=== PATIENT | female | born 1995 | race Caucasian/White ===

== ENCOUNTER 2018-02-22 22:37 | Emergency (ER) | payer MEDICAID, SELFPAY ==
[2018-02-22 22:38] VITALS: BP 154/86; PULSE 113; RESP 20; TEMP 36.7; O2SAT 98; BMI 23.0
--- NOTE | 2018-02-22 23:00 | ED.DCSUM_ITS ---
- ER Visit Summary Date of Service: 02/22/18 Chief Complaint: Myalgias, neck pain, rash History of Present Illness: The patient is a 22 F who is otherwise healthy presents with approximately 24 hours of infectious type symptoms. Patient states yesterday, she developed a migraine. She states she had a mild frontal headache and took some Tylenol and it really did not improve. She states today, she just had some generalized fatigue. She had some intermittent neck tenderness, worse when she would move her neck. Is not had fever today. She is also noticed a rash around her underwear line. She had no nausea or vomiting. She said no cough. She denies any diarrhea. She denies any recent travel or exposure. Physical Examination: Vital signs reviewed General: Well-nourished, well-developed Head: Normocephalic, atraumatic Eyes: Pupils equal and reactive, extraocular muscles intact Neck, supple, no lymphadenopathy Heart: Regular rate and rhythm Respiratory: No distress, clear bilaterally Abdomen: Soft, nontender, nondistended, no peritoneal signs Back: Nontender Extremities: Nontender, no edema, no cords Skin: Normal color scar lentiform rash across the lower abdomen at the waistline Neuro: Alert and oriented, no focal or lateralizing deficits Test Results: [] Emergency Department Course and Treatment: The patient symptoms do seem most consistent with a viral illness. She is had mild frontal headache, generalized fatigue, and then developed a rash on her lower abdomen. It is not petechial. There is no purpura. She is afebrile here. She is definitely not meningitic or encephalopathic. IV was established. Screening labs were obtained. She does have a monocytic predominance on her CBC, but labs are otherwise unremarkable. Her chest x-ray was unremarkable. Patient was given fluids and Toradol. She is resting comfortably. Her urine shows no evidence of infection. At this time, I do feel the patient is safe for outpatient therapy. He was counseled on concerning symptoms and reasons to return. She will be discharged home. Treatment Plan: [] Disposition: Discharge Impression: 1. Viral illness with exanthem This note was generated with [employer] software. It may contain incorrect words, spelling, and punctuation that were not noted in review of the chart prior to signing ED Disposition - Plan for ED Patient: Chief Complaint: General Illness Instructions: ED Viral Syndrome Referrals: Care Physician,No Primary [Primary Care Provider] -
[2018-02-22] MEDS: Ketorolac 15 MG/ML Vial IV (23:14)
[2018-02-22] MEDS: 0.9% Normal Saline 1,000 ML 1000 ML IV (23:14)
--- NOTE | 2018-02-22 23:20 | RAD_ITS ---
STUDY: X-RAY CHEST REASON FOR EXAM: Female, 22 years old. Fever headache and nausea TECHNIQUE: PA and lateral views of the chest. COMPARISON: None. FINDINGS: The lungs are clear and expanded. There is no demonstrated pleural abnormality. Normal size heart. Normal mediastinum and maureen. Normal visualized pulmonary arteries. Normal visualized aortic arch and descending thoracic aorta. Normal visualized thoracic spine. Normal visualized ribs, clavicles, and shoulders. There is no demonstrated abnormality of the visualized soft tissue structures of the upper abdomen. RAD/Chest PA and Lateral IMPRESSION: Normal x-ray examination of the chest. Electronically Signed: Quang Wallace MD at 23:41 EDT , Service support ,
[2018-02-22 23:26] LABS: Absolute Lymphocyte Count 1.01 X10^3/ul (0.83-4.51); Absolute Neutrophil Count 2.8 X10^3/uL (2.0-7.7); Basophil# 0.03 X10^3/uL; Basophil% 0.7 % (0-1); Eosinophil# 0.09 X10^3/uL; Hematocrit 42.4 % (37-47); Hemoglobin 13.6 g/dl (12.0-15.0); Lymphocyte # 1.01 X10^3/ul (4.0); Lymphocyte % 22.9 % (19-41); Mean Corp Hgb Conc 32.1 g/gl (32-36); Mean Corpuscular Hgb 29.2 pg (27.0-32.0); Mean Corpuscular Volume 91.2 fL (81-99); Mean Platelet Vol. 9.4 fl (6.2-12.0); Monocyte# 0.45 X10^3/uL; Monocyte% 10.2 % (0-10); Neutrophil # 2.84 X10^3/uL (2.7-7.7); Neutrophil % 64.2 % (47-70); POSITIVE COUNT NO; POSITIVE DIFFERENTIAL NO; POSITIVE MORPHOLOGY NO; Platelet Count 184 K/mm3 (150-450); RBC Distribution Width CV 13.4 % (11.6-14.6); RBC Distribution Width SD 44.3 fl (35.1-43.9); Red Blood Count 4.65 M/mm3 (4.2-5.4); White Blood Count 4.4 K/mm3 (4.4-11.0)
[2018-02-22 23:51] LABS: ALB/GLOB Ratio 0.9 RATIO (0.9-2.4); AST(SGOT) 15 U/L (15-37); Alanine Aminotransfer ALT/SGPT 21 U/L (13-56); Albumin, Serum 3.9 g/dL (3.2-5.0); Alkaline Phosphatase 93 U/L (45-117); Anion Gap 6 (5-15); BUN 8 mg/dL (7-18); BUN/Creat Ratio 9.7 RATIO (10-20); Calcium,Total 8.8 mg/dL (8.5-10.1); Chloride 105 mmol/L (98-107); Creatinine, Serum 0.83 mg/dL (0.55-1.02); EST Glomerular Filtration Rate 90 mL/min (>60); Est Glom Filt Rate - Afr Amer 109 mL/min (>60); Estimated Creatinine Clearance 113.99 ml/min; Globulin 4.3 g/dL (2.2-4.2); Glucose 87 mg/dL (74-106); Potassium 3.5 mmol/L (3.5-5.1); Protein, Total 8.2 g/dL (6.4-8.2); Sodium Level 139 mmol/L (136-145)
[2018-02-23 00:08] LABS: Bacteria 0 SEEN /hpf (None Seen); Mucous, Urine 0 SEEN /hpf (<or=2+); Red Blood Cells-Urine 0 SEEN /hpf (0-5)
[2018-02-23 00:14] LABS: Color, Urine Yellow (Yellow); Glucose, Dipstick Normal (Normal); Ketone-Dipstick Negative (Negative); Leukocyte Esterase-Dipstick 25 /ul (Negative); Nitrite-Dipstick Negative (Negative); Occult Blood-Urine 25 /ul (Negative); Protein-Dipstick Negative (Negative); Urine Bilirubin Dipstick Negative (Negative); Urine Clarity Clear (Clear); Urine Urobilinogen Normal (Normal)
[2018-02-23 00:15] LABS: Internal QC Validated? YES +Cl - CLEAR BKGD; Pregnancy, Urine Negative Negative
[2018-02-23 00:22] LABS: Squamous Epithelial Cells - UA 0-5 SEEN /hpf (5-10); White Blood Cells 0-5 SEEN /hpf (0-5)
[2018-02-23 00:33] VITALS: RESP 18; O2SAT 100
== END 2018-02-23 00:37 | disposition home or self-care (01) ==
PROVIDERS: Emergency Provider Emergency Medicine
DX: B34.9 Viral infection, unspecified (principal); B09 Unspecified viral infection characterized by skin and mucous membrane lesions
CPT/HCPCS: 71046; 80053; 81001; 81025; 85025; 96361; 96374; 99283; J7030

== ENCOUNTER 2019-05-31 02:34 | Emergency (ER) | payer MEDICAID, SELFPAY ==
[2019-05-31 02:37] VITALS: BP 142/80; PULSE 83; RESP 16; TEMP 36.8; O2SAT 99; BMI 22.4
[2019-05-31] MEDS: Fleet Enema 1 ML RECTAL (03:22)
[2019-05-31 03:24] LABS: Internal QC Validated? YES +Cl - CLEAR BKGD; Pregnancy, Serum, hCG Quali. NEGATIVE Negative
--- NOTE | 2019-05-31 03:31 | ED.DCSUM_ITS ---
- ER Visit Summary Date of Service: 05/31/19 Chief Complaint: Abdominal pain History of Present Illness: The patient is a [address] Rice. She reports that she has abdominal pain that began approximately 2 hours ago. It is a cramping diffuse pain is 10 to 10 hours and 7-10 currently. Nothing makes this better or worse. She denies any nausea or vomiting. She reports her last bowel movement was 5 days ago. Typically she goes every other day. Last menstrual period was last week. She denies any vaginal bleeding or discharge. No dysuria frequency. Patient reports that she had taken MiraLAX for 3 days, but has not taken it for the past 3 days. She used a glycerin suppository last night without results. She reports that she took a stool softener and a suppository at midnight just before coming in and this is not helped either. Physical Examination: Vitals: Stable. Afebrile. General: Well-nourished and well-developed. Head: Normocephalic atraumatic. Neck: Supple, no lymphadenopathy. No JVD. Nontender. Cardiovascular: Regular rate and rhythm. No murmurs. Respiratory: No respiratory distress. Clear to auscultation bilaterally. Abdominal: Soft, mild diffuse tenderness palpation, nondistended, normal bowel sounds. No guarding, rebound, or peritoneal signs. Back: Nontender. Extremities: Nontender, no edema. Skin: Normal color, no rash. Neurologic: Alert and oriented ?3. Cranial nerves II through XII are intact. Normal strength and sensation. Psych: Normal affect. Test Results: test is negative. Emergency Department Course and Treatment: Had a prolonged discussion with the p atient about symptomatic treatment for constipation. She is opted to have an enema here. She was given a fleets enema with moderate results. Treatment Plan: Patient will be discharged with magnesium citrate. Instructed to follow-up with her primary care physician 1 to 2 days if not improving. Return to the emergency department for any worsening symptoms. Disposition: To home in improved and stable condition. Impression: 1. Constipation. This note was generated with [employer] software. It may contain incorrect words, spelling, and punctuation that were not noted in review of the chart prior to signing ED Disposition - Plan for ED Patient: Instructions: CONSTIPATION (Adult) Prescriptions: Magnesium Citrate [Citrate Of Magnesia] 300 ml PO X1 #1 bottle Referrals: Verna Olivas MD [Primary Care Provider] - 1-2 Days if not improving
[2019-05-31 03:43] VITALS: BP 128/73; PULSE 80; RESP 18; O2SAT 98
--- NOTE | 2019-05-31 03:44 | ED.RN ---
AFTER ENEMA WAS GIVEN TO THE PATIENT. PATIENT GOT HERSELF UP TO THE B[facility]. WHEN I WENT IN TO CHECK ON HER SHE STATES SHE IS ABOUT TO PASS OUT. HER BP WAS INITIALLY LOW AT 90/53, PULSE 115, THEN BP 79/49 PULSE 96-103. PATIENT WAS EXTREMELY PALE, DIAPHORETIC. I GOT PATIENT BACK TO BED TO A SUPINE POSITION AND HER BP WAS 128/73, PULSE 80, 98% ON RA. PATIENT IS C/O SEVERE ABDOMINAL CRAMPING. I GAVE HER A WARM BLANKET TO APPLY TO HER ABDOMEN AND I LET DR. ZUÑIGA KNOW. TO GO IN AND CHECK ON PATIENT.
--- NOTE | 2019-05-31 03:49 | ED.RN ---
DR. ZUÑIGA WENT IN THERE AND CHECKED ON THE PATIENT. HE OFFERED HER TORADOL, BUT SHE REFUSED AT THIS TIME. SHE WANTS TO SEE IF SHE HAS TO GO AGAIN.
[2019-05-31 04:51] VITALS: BP 117/60; PULSE 84; RESP 18; O2SAT 99
== END 2019-05-31 04:52 | disposition home or self-care (01) ==
LOC: ED 03:18
PROVIDERS: Emergency Provider Emergency Medicine; PCP Internal Medicine; Referring Provider Internal Medicine
DX: K59.00 Constipation, unspecified (principal)
CPT/HCPCS: 84703; 99282

== ENCOUNTER 2023-05-07 00:11 | Emergency (ER) | payer MEDICAID, SELFPAY ==
[2023-05-07 00:13] VITALS: BP 118/71; PULSE 83; RESP 18; TEMP 36.6; O2SAT 97
--- NOTE | 2023-05-07 00:45 | RAD_ITS ---
EXAM: XR LEFT FOOT COMPLETE, 3 OR MORE VIEWS CLINICAL INDICATION: pain TECHNIQUE: Frontal, lateral and oblique views of the left foot. COMPARISON: No relevant prior studies available. FINDINGS: BONES/JOINTS: Unremarkable. No acute fracture. No subluxation. Normal alignment. Preservation of the joint space. No sclerotic or destructive changes observed. SOFT TISSUES: Unremarkable. No soft tissue swelling or gas. No radiopaque foreign body. RAD/Foot min 3 Views IMPRESSION: Negative left foot x-rays. Electronically Signed: Cal Puente MD at 1:26 EST ,
--- NOTE | 2023-05-07 00:45 | RAD_ITS ---
EXAM: XR LEFT ANKLE COMPLETE, 3 OR MORE VIEWS CLINICAL INDICATION: pain TECHNIQUE: Frontal, lateral and oblique views of the left ankle. COMPARISON: No relevant prior studies available. FINDINGS: BONES/JOINTS: Unremarkable. No acute fracture. No subluxation. Normal alignment. Preservation of the joint space. No sclerotic or destructive changes observed. SOFT TISSUES: Unremarkable. No soft tissue swelling or gas. No radiopaque foreign body. RAD/Ankle min 3 Views IMPRESSION: Negative left ankle x-rays. Electronically Signed: Cal Puente MD at 1:24 EST ,
--- OUTSIDE RECORDS SUMMARY | 2023-05-07 00:58 | XMS RPT_ITS | CCD ---
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 (Liver Transplant) Paternal Grandmother No Known Problems Paternal Grandfather No Known Problems Son No Known Problems Daughter No Known Problems Daughter Social History Tobacco Use Smoking status: Never Smoker Smokeless tobacco: Never Used Vaping Use Vaping Use: Never used Substance Use Topics Alcohol use: Not Currently Drug use: No PHYSICAL EXAM BP 128/72 Pulse 68 Resp 16 Wt 84.4 kg (186 lb) LMP 06/13/2021 (Approximate) BMI 26.69 kg/m General Appearance: well appearing, in no acute distress, alert Pysch: mood and affect broad and appropriate Skin: scattered reddended pustules noted to back and shoulders. Large amount of reddened inflamed pustules between breast. Red papule to right thigh. Non tender, no fluctuation, no open areas/drainage, firm, no red streaking. Eyes: conjunctiva pink and moist, no icterus, sclera white, non-injected Neck: Thyroid normal size and symmetric without palpable nodules, No adenopathy Lymph nodes: No cervical lymphadenopathy and No supraclavicular lymphadenopathy Lungs: Lungs clear to auscultation. No wheezing, rhonchi, rales. Heart: RRR without murmur, gallop, or rubs. No ectopy Abdomen: Abdomen soft, non-tender. Bowel sounds normal. No masses, organomegaly Extremities: No deformities, edema, skin discoloration, clubbing or cyanosis. Good capillary refill. 2 bilateral bunions noted Musculoskeletal: No joint swelling, deformity, or tenderness Neurological: Gait normal. speech normal, mental status intact, muscle tone normal, muscle strength normal COVID-19 VACCINE(1) Never done DEPRESSION SCREENING due on 01/18/2020 ANNUAL PCP TEAM CHRONIC DISEASE VISIT due on 09/07/2021 PAP TESTING due on 05/20/2022 INFLUENZA(1) due on 12/29/2021 DTAP,TDAP,TD(3 - Td or Tdap) due on 11/02/2026 HIV SCREENING Completed HEPATITIS C SCREENING Discontinued ASSESSMENT/PLAN: 1. Wellness examination - ICD9: V70.0, ICD10: Z00.00 (primary diagnosis) - Counseled on healthy diet and regular exercise - Calcium intake with supplements or by diet of 1000 mg/day for under 50, 4559-7974 mg/day for 50+ - Discussed need and benefit for weight loss. BMI 26.69 kg/(m^2) - Discussed safe sex practices and avoidance of STIs - Depression screening tool completed and reviewed with patient. Based on score and interview, patient is not at risk for depression and recommended no further intervention at this time. - Follow up for annual exam in one year 2. Acquired hypothyroidism - ICD9: 244.9, ICD10: E03.9 - Instructed patient on importance of taking on an empty stomach either first thing in the morning or at bedtime. - tsh normal and asymptomatic - LEVOTHYROXINE 50 MCG TABLET 3. Acne, unspecified acne type - ICD9: 706.1, ICD10: L70.9 - recently worsening - will do doxy in hopes to resolve this and possible the papule to her right thigh - SPIRONOLACTONE 50 MG TABLET 4. Pain - ICD9: 780.96, ICD10: R52 - post sex pain and lower abdominal cramping - no other symptoms - low risk for STD - no pain during sex or abnormal discharge - UA WITH CULTURE IF INDICATED - US FEMALE PELVIS TRANSVAG - US FEMALE PELVIS TRANSABD LTD - GC/CHLAMYDIA AMPLIF, URINE 5. Bilateral lower abdominal cramping - ICD9: 789.09, ICD10: R10.31, R10.32 As above 6. Migraine without aura and without status migrainosus, not intractable - ICD9: 346.10, ICD10: G43.009 - controlled and improved since 2019, Will order sumatriptan for patient to have on hand if needed - SUMATRIPTAN 50 MG TABLET - go to ER for severe headaches, confusion, weakness, numbness tingling or any other concerns. - follow up in 1 year unless symptoms change or increase. 7. Bilateral bunions - ICD9: 727.1, ICD10: M21.611, M21.612 - CONSULT TO PODIATRY Prescription instructions reviewed with patient as applicable. Potential red flag symptoms discussed with the patient. Reviewed appropriate action plan to take if red flag symptoms occur. Patient agreeable to treatment plan. Nancy Lugo APRN.CNP documented in this encounter [facility] 10-27-2021 Miscellaneous Notes covermymed PA completed for allergy rel tab 10 mg. Response. Ladi Corona Sharpe: [id number] FELIX Rx #: [id number] Need help? Call us at Outcome N/Aon October 26 We received a prior authorization request for the member and product listed above. The Community and State Medicaid Prior Authorization Team is not able to review this request because the requested product does not require prior authorization. The National Drug Code (NDC) the pharmacy is processing is not a covered NDC.Please have the dispensing pharmacy order or reprocess the prescription using a coverable NDC.If you have any questions, please call the Community and State Medicaid Team at .The pharmacy may obtain assistance by contacting the [facility] Help Desk anytime at [phone]. DrugEQ Allergy Relief (Cetirizine) 10MG tablets Form[employer]umRx Medicaid Electronic Prior Authorization Form (2016 NCPDP) Original Claim [id number] documented in this encounter [facility] 10-21-2021 Miscellaneous Notes 3 months of refills done. Fasting labs ordered. Patient calls and sets up annual appointment on 11/18/2021. Patient also asking about labs that need to be done prior to appointment. Last Office Visit: 09/07/2020 Future Office Visit: 11/18/2021 Last Medication Refill: cetirizine 12/07/2020 30 tab 11 refill Levothyroxine 10/30/2020 90 tab 3 refill Spironolactone 10/30/2020 90 tab 3 refill Date of Last Labs: 09/10/2020 documented in this encounter [facility] documented as of this encounter (statuses as of 10/21/2021) [facility] History of Past illness Narrative* Problem Noted Date Resolved Date Chest pain 01/17/2019 10/21/2021 Iron deficiency anemia secon willis to inadequate dietary iron intake 12/13/2016 03/02/2017 Antepartum anemia in third trimester 11/03/2016 03/02/2017 Overview: 11/03/16 - iron & folic acid supplementation, needs repeat cbc 2-4 weeks - KJ December 07, 2016 Still sign. fe def. Consult w/ heme to consider iv FE. Jayla Larsen MD See 11/2016 hematology consult. Recommend slow fe daily x 4 months after delivery w/ PNV and is getting IV fe. Jayla Larsen MD Normal 09/15/2016 03/02/2017 Overview: Girl on us [place] Acute appendicitis without mention of peritoniti s 12/04/2014 09/15/2016 Normal 02/02/2014 09/15/2016 Overview: Girl on us- [place] documented as of this encounter (statuses as of 10/27/2021) [facility] History of Past illness Narrative* Problem Noted Date Resolved Date Chest pain 01/17/2019 10/21/2021 Iron deficiency anemia secon willis to inadequate dietary iron intake 12/13/2016 03/02/2017 Antepartum anemia in third trimester 11/03/2016 03/02/2017 Overview: 11/03/16 - iron & folic acid supplementation, needs repeat cbc 2-4 weeks - KJ December 07, 2016 Still sign. fe def. Consult w/ heme to consider iv FE. Jayla Larsen MD See 11/2016 hematology consult. Recommend slow fe daily x 4 months after delivery w/ PNV and is getting IV fe. Jayla Larsen MD Normal 09/15/2016 03/02/2017 Overview: Girl on [place] Acute appendicitis without mention of peritoniti s 12/04/2014 09/15/2016 Normal 02/02/2014 09/15/2016 Overview: Girl on - [place] documented as of this encounter (statuses as of 11/18/2021) [facility] History of Past illness Narrative* Problem Noted Date Resolved Date Chest pain 01/17/2019 10/21/2021 Iron deficiency anemia secon willis to inadequate dietary iron intake 12/13/2016 03/02/2017 Antepartum anemia in third trimester 11/03/2016 03/02/2017 Overview: 11/03/16 - iron & folic acid supplementation, needs repeat cbc 2-4 weeks - KJ December 07, 2016 Still sign. fe def. Consult w/ heme to consider iv FE. Jayla Larsen MD See 11/2016 hematology consult. Recommend slow fe daily x 4 months after delivery w/ PNV and is getting IV fe. Jayla Larsen MD Normal 09/15/2016 03/02/2017 Overview: Girl on us [place] Acute appendicitis without mention of peritoniti s 12/04/2014 09/15/2016 Normal 02/02/2014 09/15/2016 Overview: Girl on us- [place] documented as of this encounter (statuses as of 11/29/2021) [facility] History of Past illness Narrative* Problem Noted Date Resolved Date Chest pain 01/17/2019 10/21/2021 Iron deficiency anemia secon willis to inadequate dietary iron intake 12/13/2016 03/02/2017 Antepartum anemia in third trimester 11/03/2016 03/02/2017 Overview: 11/03/16 - iron & folic acid supplementation, needs repeat cbc 2-4 weeks - KJ December 07, 2016 Still sign. fe def. Consult w/ heme to consider iv FE. Jayla Larsen MD See 11/2016 hematology consult. Recommend slow fe daily x 4 months after delivery w/ PNV and is getting IV fe. Jayla Larsen MD Normal 09/15/2016 03/02/2017 Overview: Girl on us [place] Acute appendicitis without mention of peritoniti s 12/04/2014 09/15/2016 Normal 02/02/2014 09/15/2016 Overview: Girl on us- [place] documented as of this encounter (statuses as of 12/05/2021) [facility] History of Past illness Narrative* Problem Noted Date Resolved Date Chest pain 01/17/2019 10/21/2021 Iron deficiency anemia secon willis to inadequate dietary iron intake 12/13/2016 03/02/2017 Antepartum anemia in third trimester 11/03/2016 03/02/2017 Overview: 11/03/16 - iron & folic acid supplementation, needs repeat cbc 2-4 weeks - KJ December 07, 2016 Still sign. fe def. Consult w/ heme to consider iv FE. Jayla Larsen MD See 11/2016 hematology consult. Recommend slow fe daily x 4 months after delivery w/ PNV and is getting IV fe. Jayla Larsen MD Normal 09/15/2016 03/02/2017 Overview: Girl on us [place] Acute appendicitis without mention of peritoniti s 12/04/2014 09/15/2016 Normal 02/02/2014 09/15/2016 Overview: Girl on us- [place] documented as of this encounter (statuses as of 12/06/2021) [facility] History of Past illness Narrative* Problem Noted Date Resolved Date Chest pain 01/17/2019 10/21/2021 Iron deficiency anemia secon willis to inadequate dietary iron intake 12/13/2016 03/02/2017 Antepartum anemia in third trimester 11/03/2016 03/02/2017 Overview: 11/03/16 - iron & folic acid supplementation, needs repeat cbc 2-4 weeks - KJ December 07, 2016 Still sign. fe def. Consult w/ heme to consider iv FE. Jayla Larsen MD See 11/2016 hematology consult. Recommend slow fe daily x 4 months after delivery w/ PNV and is getting IV fe. Jayal Larsen MD Normal 09/15/2016 03/02/2017 Overview: Girl on us [place] Acute appendicitis without mention of peritoniti s 12/04/2014 09/15/2016 Normal 02/02/2014 09/15/2016 Overview: Girl on us- [place] documented as of this encounter (statuses as of 12/22/2021) [facility] History of Past illness Narrative* Problem Noted Date Resolved Date Chest pain 01/17/2019 10/21/2021 Iron deficiency anemia secon willis to inadequate dietary iron intake 12/13/2016 03/02/2017 Antepartum anemia in third trimester 11/03/2016 03/02/2017 Overview: 11/03/16 - iron & folic acid supplementation, needs repeat cbc 2-4 weeks - KJ December 07, 2016 Still sign. fe def. Consult w/ heme to consider iv FE. Jayla Larsen MD See 11/2016 hematology consult. Recommend slow fe daily x 4 months after delivery w/ PNV and is getting IV fe. Jayla Larsen MD Normal 09/15/2016 03/02/2017 Overview: Girl on us [place] Acute appendicitis without mention of peritoniti s 12/04/2014 09/15/2016 Normal 02/02/2014 09/15/2016 Overview: Girl on us- [place] documented as of this encounter (statuses as of 12/23/2021) [facility] History of Past illness Narrative* Problem Noted Date Resolved Date Chest pain 01/17/2019 10/21/2021 Iron deficiency anemia secon willis to inadequate dietary iron intake 12/13/2016 03/02/2017 Antepartum anemia in third trimester 11/03/2016 03/02/2017 Overview: 11/03/16 - iron & folic acid supplementation, needs repeat cbc 2-4 weeks - KJ December 07, 2016 Still sign. fe def. Consult w/ heme to consider iv FE. Jayla Larsen MD See 11/2016 hematology consult. Recommend slow fe daily x 4 months after delivery w/ PNV and is getting IV fe. Jayla Larsen MD Normal 09/15/2016 03/02/2017 Overview: Girl on us [place] Acute appendicitis without mention of peritoniti s 12/04/2014 09/15/2016 Normal 02/02/2014 09/15/2016 Overview: Girl on us- [place] documented as of this encounter (statuses as of 05/06/2022) [facility] History of Past illness Narrative* Problem Noted Date Resolved Date Chest pain 01/17/2019 10/21/2021 Iron deficiency anemia secon willis to inadequate dietary iron intake 12/13/2016 03/02/2017 Antepartum anemia in third trimester 11/03/2016 03/02/2017 Overview: 11/03/16 - iron & folic acid supplementation, needs repeat cbc 2-4 weeks - KJ December 07, 2016 Still sign. fe def. Consult w/ heme to consider iv FE. Jayla Larsen MD See 11/2016 hematology consult. Recommend slow fe daily x 4 months after delivery w/ PNV and is getting IV fe. Jayla Larsen MD Normal 09/15/2016 03/02/2017 Overview: Girl on us [place] Acute appendicitis without mention of peritoniti s 12/04/2014 09/15/2016 Normal 02/02/2014 09/15/2016 Overview: Girl on - [place] documented as of this encounter (statuses as of 07/07/2022) [facility] History of Past illness Narrative* Problem Noted Date Resolved Date Chest pain 01/17/2019 10/21/2021 Iron deficiency anemia secon willis to inadequate dietary iron intake 12/13/2016 03/02/2017 Antepartum anemia in third trimester 11/03/2016 03/02/2017 Overview: 11/03/16 - iron & folic acid supplementation, needs repeat cbc 2-4 weeks - KJ December 07, 2016 Still sign. fe def. Consult w/ heme to consider iv FE. Jayla Larsen MD See 11/2016 hematology consult. Recommend slow fe daily x 4 months after delivery w/ PNV and is getting IV fe. Jayla Larsen MD Normal 09/15/2016 03/02/2017 Overview: Girl on us [place] Acute appendicitis without mention of peritoniti s 12/04/2014 09/15/2016 Normal 02/02/2014 09/15/2016 Overview: Girl on us- [place] documented as of this encounter (statuses as of 10/03/2022) [facility] History of Past illness Narrative* Problem Noted Date Resolved Date Chest pain 01/17/2019 10/21/2021 Iron deficiency anemia secon willis to inadequate dietary iron intake 12/13/2016 03/02/2017 Antepartum anemia in third trimester 11/03/2016 03/02/2017 Overview: 11/03/16 - iron & folic acid supplementation, needs repeat cbc 2-4 weeks - KJ December 07, 2016 Still sign. fe def. Consult w/ heme to consider iv FE. Jayla Larsen MD See 11/2016 hematology consult. Recommend slow fe daily x 4 months after delivery w/ PNV and is getting IV fe. Jayla Larsen MD Normal 09/15/2016 03/02/2017 Overview: Girl on us [place] Acute appendicitis without mention of peritoniti s 12/04/2014 09/15/2016 Normal 02/02/2014 09/15/2016 Overview: Girl on us- [place] documented as of this encounter (statuses as of 10/26/2022) [facility] History of Past illness Narrative* Problem Noted Date Resolved Date Chest pain 01/17/2019 10/21/2021 Iron deficiency anemia secon willis to inadequate dietary iron intake 12/13/2016 03/02/2017 Antepartum anemia in third trimester 11/03/2016 03/02/2017 Overview: 11/03/16 - iron & folic acid supplementation, needs repeat cbc 2-4 weeks - KJ December 07, 2016 Still sign. fe def. Consult w/ heme to consider iv FE. Jayla Larsen MD See 11/2016 hematology consult. Recommend slow fe daily x 4 months after delivery w/ PNV and is getting IV fe. Jayla Larsen MD Normal 09/15/2016 03/02/2017 Overview: Girl on us [place] Acute appendicitis without mention of peritoniti s 12/04/2014 09/15/2016 Normal 02/02/2014 09/15/2016 Overview: Girl on us- [place] documented as of this encounter (statuses as of 10/28/2022) [facility] History of Past illness Narrative* Problem Noted Date Diagnosed Date Resolved Date Chest pain 01/17/2019 10/21/2021 Iron deficiency anemia secon willis to inadequate dietary iron intake 12/13/2016 7 Antepartum anemia in third trimester 11/03/2016 03/02/2017 Overview: 11/03/16 - iron & folic acid supplementation, needs repeat cbc 2-4 weeks - KJ December 07, 2016 Still sign. fe def. Consult w/ heme to consider iv FE. Jayla Larsen MD See 11/2016 hematology consult. Recommend slow fe daily x 4 months after delivery w/ PNV and is getting IV fe. Jayla Larsen MD Normal 09/15/2016 03/02/2017 Overview: Girl on us [place] Acute appendicitis without m ention of peritonitis 12/04/2014 09/15/2016 Normal 02/02/2014 09/15/2016 Overview: Girl on us- [place] documented as of this encounter (statuses as of 11/17/2022) [facility] History of Past illness Narrative* Problem Noted Date Diagnosed Date Resolved Date Chest pain 01/17/2019 10/21/2021 Iron deficiency anemia secon willis to inadequate dietary iron intake 12/13/2016 7 Antepartum anemia in third trimester 11/03/2016 03/02/2017 Overview: 11/03/16 - iron & folic acid supplementation, needs repeat cbc 2-4 weeks - KJ December 07, 2016 Still sign. fe def. Consult w/ heme to consider iv FE. Jayla Larsen MD See 11/2016 hematology consult. Recommend slow fe daily x 4 months after delivery w/ PNV and is getting IV fe. Jayla Larsen MD Normal 09/15/2016 03/02/2017 Overview: Girl on us [place] Acute appendicitis without m ention of peritonitis 12/04/2014 09/15/2016 Normal 02/02/2014 09/15/2016 Overview: Girl on us- [place] documented as of this encounter (statuses as of 12/09/2022) [facility] History of Past illness Narrative* Problem Noted Date Diagnosed Date Resolved Date Chest pain 01/17/2019 10/21/2021 Iron deficiency anemia secon willis to inadequate dietary iron intake 12/13/2016 7 Antepartum anemia in third trimester 11/03/2016 03/02/2017 Overview: 11/03/16 - iron & folic acid supplementation, needs repeat cbc 2-4 weeks - KJ December 07, 2016 Still sign. fe def. Consult w/ heme to consider iv FE. Jayla Larsen MD See 11/2016 hematology consult. Recommend slow fe daily x 4 months after delivery w/ PNV and is getting IV fe. Jayla Larsen MD Normal 09/15/2016 03/02/2017 Overview: Girl on [place] Acute appendicitis without m ention of peritonitis 12/04/2014 09/15/2016 Normal 02/02/2014 09/15/2016 Overview: Girl on - [place] documented as of this encounter (statuses as of 12/12/2022) [facility] History of Past illness Narrative* Problem Noted Date Diagnosed Date Resolved Date Chest pain 01/17/2019 10/21/2021 Iron deficiency anemia secon willis to inadequate dietary iron intake 12/13/2016 7 Antepartum anemia in third trimester 11/03/2016 03/02/2017 Overview: 11/03/16 - iron & folic acid supplementation, needs repeat cbc 2-4 weeks - KJ December 07, 2016 Still sign. fe def. Consult w/ heme to consider iv FE. Jayla Larsen MD See 11/2016 hematology consult. Recommend slow fe daily x 4 months after delivery w/ PNV and is getting IV fe. Jayla Larsen MD Normal 09/15/2016 03/02/2017 Overview: Girl on us [place] Acute appendicitis without m ention of peritonitis 12/04/2014 09/15/2016 Normal 02/02/2014 09/15/2016 Overview: Girl on us- [place] documented as of this encounter (statuses as of 01/17/2023) [facility] History of Past illness Narrative* Problem Noted Date Diagnosed Date Resolved Date Chest pain 01/17/2019 10/21/2021 Iron deficiency anemia secon willis to inadequate dietary iron intake 12/13/2016 7 Antepartum anemia in third trimester 11/03/2016 03/02/2017 Overview: 11/03/16 - iron & folic acid supplementation, needs repeat cbc 2-4 weeks - KJ December 07, 2016 Still sign. fe def. Consult w/ heme to consider iv FE. Jayla Larsen MD See 11/2016 hematology consult. Recommend slow fe daily x 4 months after delivery w/ PNV and is getting IV fe. Jayla Larsen MD Normal 09/15/2016 03/02/2017 Overview: Girl on [place] Acute appendicitis without m ention of peritonitis 12/04/2014 09/15/2016 Normal 02/02/2014 09/15/2016 Overview: Girl on - [place] documented as of this encounter (statuses as of 01/26/2023) [facility] History of Past illness Narrative* Problem Noted Date Diagnosed Date Resolved Date Chest pain 01/17/2019 10/21/2021 Iron deficiency anemia secon willis to inadequate dietary iron intake 12/13/2016 7 Antepartum anemia in third trimester 11/03/2016 03/02/2017 Overview: 11/03/16 - iron & folic acid supplementation, needs repeat cbc 2-4 weeks - KJ December 07, 2016 Still sign. fe def. Consult w/ heme to consider iv FE. Jayla Larsen MD See 11/2016 hematology consult. Recommend slow fe daily x 4 months after delivery w/ PNV and is getting IV fe. Jayla Larsen MD Normal 09/15/2016 03/02/2017 Overview: Girl on us [place] Acute appendicitis without m ention of peritonitis 12/04/2014 09/15/2016 Normal 02/02/2014 09/15/2016 Overview: Girl on - [place] documented as of this encounter (statuses as of 01/30/2023) [facility] History of Past illness Narrative* Problem Noted Date Diagnosed Date Resolved Date Chest pain 01/17/2019 10/21/2021 Iron deficiency anemia secon willis to inadequate dietary iron intake 12/13/2016 7 Antepartum anemia in third trimester 11/03/2016 03/02/2017 Overview: 11/03/16 - iron & folic acid supplementation, needs repeat cbc 2-4 weeks - KJ December 07, 2016 Still sign. fe def. Consult w/ heme to consider iv FE. Jayla Larsen MD See 11/2016 hematology consult. Recommend slow fe daily x 4 months after delivery w/ PNV and is getting IV fe. Jayla Larsen MD Normal 09/15/2016 03/02/2017 Overview: Girl on [place] Acute appendicitis without m ention of peritonitis 12/04/2014 09/15/2016 Normal 02/02/2014 09/15/2016 Overview: Girl on - [place] documented as of this encounter (statuses as of 02/12/2023) [facility] of Past illness Narrative* Problem Noted Date Diagnosed Date Resolved Date Chest pain 01/17/2019 10/21/2021 Iron deficiency anemia secon willis to inadequate dietary iron intake 12/13/2016 7 Antepartum anemia in third trimester 11/03/2016 03/02/2017 Overview: 11/03/16 - iron & folic acid supplementation, needs repeat cbc 2-4 weeks - KJ December 07, 2016 Still sign. fe def. Consult w/ heme to consider iv FE. Jayla Larsen MD See 11/2016 hematology consult. Recommend slow fe daily x 4 months after delivery w/ PNV and is getting IV fe. Jayla Larsen MD Normal 09/15/2016 03/02/2017 Overview: Girl on us [place] Acute appendicitis without m ention of peritonitis 12/04/2014 09/15/2016 Normal 02/02/2014 09/15/2016 Overview: Girl on us- [place] documented as of this encounter (statuses as of 02/15/2023) [facility] of Past illness Narrative* Problem Noted Date Diagnosed Date Resolved Date Chest pain 01/17/2019 10/21/2021 Iron deficiency anemia secon willis to inadequate dietary iron intake 12/13/2016 7 Antepartum anemia in third trimester 11/03/2016 03/02/2017 Overview: 11/03/16 - iron & folic acid supplementation, needs repeat cbc 2-4 weeks - KJ December 07, 2016 Still sign. fe def. Consult w/ heme to consider iv FE. Jayla Larsen MD See 11/2016 hematology consult. Recommend slow fe daily x 4 months after delivery w/ PNV and is getting IV fe. Jayla Larsen MD Normal 09/15/2016 03/02/2017 Overview: Girl on us [place] Acute appendicitis without m ention of peritonitis 12/04/2014 09/15/2016 Normal 02/02/2014 09/15/2016 Overview: Girl on us- Tanvi documented as of this encounter (statuses as of 03/14/2023) [facility] Diagnosis Acquired hypothyroidism- Primary Unspecified hypothyroidism Acne, unspecified acne type Allergic rhinitis, unspecified seasonality, unspecified trigger Wellness examination [facility] Diagnosis Wellness examination- Primary Acquired hypothyroidism Unspecified hypothyroidism Acne, unspecified acne type Pain Generalized pain Bilateral lower abdominal cramping Abdominal pain, other specified site Migraine without aura and without status migrainosus, not intractable Migraine without aura, without mention of intractable migraine without mention of status migrainosus Bilateral bunions Bunion documented in this encounter [facility] Diagnosis Pain Generalized pain documented in this encounter [facility] Diagnosis Bilateral bunions- Primary Bunion Pes planus of both feet Diminished pulses in lower extremity Other symptoms involving cardiovascular system documented in this encounter [facility] Diagnosis Bunion documented [facility] this [facility] Diagnosis Encounter for removal and reinsertion of Nexplanon- Primary documented in this encounter [facility]* Diagnosis Encounter for gynecological examination without abnormal finding- Primary Routine gynecological examination Encounter for screening for malignant neoplasm of cervix Screening for malignant neoplasm of the cervix documented in this encounter [facility]* Diagnosis Breast lump on left side at 11 o'clock position- Primary Lump or mass in breast documented in this encounter [facility]* Diagnosis Abnormal ultrasound of breast- Primary Other (abnormal) findings on radiological examination of breast documented in this encounter [facility]* Diagnosis Medication management Encounter for long-term (current) use of other medications Acquired hypothyroidism Unspecified hypothyroidism documented in this encounter [facility]* Diagnosis Allergic rhinitis, unspecified seasonality, unspecified trigger- Primary documented in this encounter [facility]* Diagnosis Acquired hypothyroidism Unspecified hypothyroidism documented in this encounter [facility]* Diagnosis Annual physical exam- Primary Routine general medical examination at a health care facility Migraine without aura and without status migrainosus, not intractable Migraine without aura, without mention of intractable migraine without mention of status migrainosus Acquired hypothyroidism Unspecified hypothyroidism Plantar fasciitis Plantar fascial fibromatosis Acne, unspecified acne type Pilar cyst documented in this encounter [facility]* Diagnosis Migraine without aura and without status migrainosus, not intractable- Primary Migraine without aura, without mention of intractable migraine without mention of status migrainosus Generalized anxiety disorder documented in this encounter [facility]* Diagnosis Viral URI- Primary Acute upper respiratory infections of unspecified site documented in this encounter [facility]* Diagnosis Migraine without aura and without status migrainosus, not intractable- Primary Migraine without aura, without mention of intractable migraine without mention of status migrainosus Generalized anxiety disorder documented in this encounter [facility] for referral (narrative)* Diagnostic Procedure Only (Routine) - Authorized Specialty Diagnoses / Procedures Referred By Óscar t Referred To Contact US IMAGING Diagnoses Pain Procedures US FEMALE PELVIS TRANSABD LTD US PELVIC NONOBSTETRIC IMAGE DCMTN LIMITED/F/U Nancy Lugo APRN.CREDENTIALING SPECIALIST [address] [place] [address] Us Imaging Referral ID Status Reason Start Date Expiration Date Visits Requested Visits Authorized [id number] Authorized Auto-Generat ed Referral 11/18/2021 12/18/2022 1 1 * Diagnostic Procedure Only (Routine) - Authorized Specialty Diagnoses / Procedures Referred By Contac t Referred To Contact US IMAGING Diagnoses Pain Procedures US FEMALE PELVIS TRANSVAG US TRANSVAGINAL Nancy Lugo APRN.CREDENTIALING SPECIALIST [address] [place] [address] Us Imaging Referral ID Status Reason Start Date Expiration Date Visits Requested Visits Authorized [id number] Authorized Auto-Generat ed Referral 11/18/2021 12/18/2022 1 1 * Consult, Test, Treat (Routine) - Authorized Specialty Diagnoses / Procedures Referred By Contac t Referred To Contact Podiatry Diagnoses Bilateral bunions Procedures CONSULT TO PODIATRY OFFICE/OUTPATIENT NEW HIGH MDM 60-74 MINUTES Nancy Lugo APRN.CREDENTIALING SPECIALIST [address] [place] [address] Referral ID Status Reason Start Date Expiration Date Visits Requested Visits Authorized [id number] Authorized PCP Requested Referral 11/18/2021 11/18/2022 1 1 [facility] for referral (narrative)* Diagnostic Procedure Only (Routine) - Closed Specialty Diagnoses / Procedures Referred By Contac t Referred To Contact US IMAGING Diagnoses Pain Procedures US FEMALE PELVIS TRANSABD LTD US PELVIC NONOBSTETRIC IMAGE DCMTN LIMITED/F/U Nancy Lugo APRN.CREDENTIALING SPECIALIST [address] [place] [address] Us Imaging Referral ID Status Reason Start Date Expiration Date V isits Requested Visits Authorized [id number] Closed Auto-Generate d Referral 11/18/2021 12/18/2022 1 1 * Diagnostic Procedure Only (Routine) - Closed Specialty Diagnoses / Procedures Referred By Contac t Referred To Contact US IMAGING Diagnoses Pain Procedures US FEMALE PELVIS TRANSVAG US TRANSVAGINAL Nancy Lugo APRN.CNP [address] [place] [address] Us Imaging Referral ID Status Reason Start Date Expiration Date V isits Requested Visits Authorized [id number] Closed Auto-Generate d Referral 11/18/2021 12/18/2022 1 1 [facility] for referral (narrative)* Outpatient Procedure (Routine) - Authorized Specialty Diagnoses / Procedures Referred By Contac t Referred To [facility] Diagnoses Bilateral bunions Diminished pulses in lower extremity Procedures PVR ANK PRESS FER VAS LAB NON-INVAS PHYSIOLOGIC STD EXTREMITY ART 2 LEVEL Vinod Rosenberg [address] [place] [address] [facility] [address] [place] [address] Referral ID Status Reason Start Date Expiration Date Visits Requested Visits Authorized [id number] Authorized Auto-Generat ed Referral 12/05/2021 12/05/2022 1 1 [facility] for referral (narrative)* Diagnostic Procedure Only (Routine) - Closed Specialty Diagnoses / Procedures Referred By Contac t Referred To Contact XR IMAGING Diagnoses Bunion Procedures XR FOOT GENERAL 3V AP/LAT/OBL BILATERAL RADEX FOOT COMPLETE MINIMUM 3 VIEWS Vinod Rosenberg [address] [place] [address] Xr Imaging Referral ID Status Reason Start Date Expiration Date V isits Requested Visits Authorized [id number] Closed Auto-Generate d Referral 12/01/2021 12/31/2022 1 1 [facility] for referral (narrative)* Outpatient Procedure (Routine) - Authorized Specialty Diagnoses / Procedures Referred By Óscar zhao Referred To Contact [facility] Diagnoses Encounter for removal and reinsertion of Nexplanon Procedures NEXPLANON REMOVAL REMOVAL NON-BIODEGRADABLE DRUG DELIVERY IMPLANT Lora Pryor MD [address] [place] [address] [address] Referral ID Status Reason Start Date Expiration Date Visits Requested Visits Authorized [id number] Authorized Auto-Generat ed Referral 05/05/2022 05/05/2023 1 1 * Outpatient Procedure (Routine) - Authorized Specialty Diagnoses / Procedures Referred By Óscar zhao Referred To Contact [facility] Diagnoses Encounter for removal and reinsertion of Nexplanon Procedures NEXPLANON INSERTION ETONOGESTREL IMPLANT SYSTEM INSERT DRUG IMPLANT DEVICE Lora Pryor MD [address] [place] [address] [address] [place] [address] Referral ID Status Reason Start Date Expiration Date Visits Requested Visits Authorized [id number] Authorized Auto-Generat ed Referral 05/05/2022 05/05/2023 1 1 [facility] for referral (narrative)* Diagnostic Procedure Only (Routine) - Pending Review Specialty Diagnoses / Procedures Referred By Óscar zhao Referred To Contact [facility] Diagnoses Breast lump on left side at 11 o'clock position Procedures US BREAST LTD LEFT US BREAST UNI REAL TIME WITH IMAGE LIMITED Lora Pryor MD [address] [place] [address] [facility] [address] [place] [address] Referral ID Status Reason Start Date Expiration Date Visits Requested Visits Authorized [id number] Pending Review Auto-Generat ed Referral 10/03/2022 11/02/2023 1 1 * Diagnostic Procedure Only (Routine) - Authorized Specialty Diagnoses / Procedures Referred By Contac t Referred To Contact [facility] Diagnoses Breast lump on left side at 11 o'clock position Procedures REED DIAGNOSTIC BILATERAL DIAGNOSTIC MAMMOGRAPHY COMPUTER-AIDED DETCJ Lora Grady MD [address] [place] [address] [facility] [address] [place] [phone] Referral ID Status Reason Start Date Expiration Date Visits Requested Visits Authorized [id number] Authorized Auto-Generat ed Referral 10/03/2022 11/02/2023 1 1 [facility] for referral (narrative)* Diagnostic Procedure Only (Routine) - Closed Specialty Diagnoses / Procedures Referred By Contac t Referred To Contact [facility] Diagnoses Abnormal ultrasound of breast Procedures REED DIAGNOSTIC LEFT DIAGNOSTIC MAMMOGRAPHY COMPUTER-AIDED DETCJ Asia Guthrie MD [address] [place] [address] [facility] [address] [place] [address] Referral ID Status Reason Start Date Expiration Date V isits Requested Visits Authorized [id number] Closed Auto-Generate d Referral 10/24/2022 11/23/2023 1 1 [facility] for visit Narrative* Diagnostic Procedure Only (Routine) - Closed Specialty Diagnoses / Procedures Referred By Contac t Referred To Contact XR IMAGING Diagnoses Bunion Procedures XR FOOT GENERAL 3V AP/LAT/OBL BILATERAL RADEX FOOT COMPLETE MINIMUM 3 VIEWS Vinod Rosenberg [address] [place] [address] Xr Imaging Referral ID Status Reason Start Date Expiration Date V isits Requested Visits Authorized [id number] Closed Auto-Generate d Referral 12/01/2021 12/31/2022 1 1 [facility] Advance Directives No Advanced Directives Records FoundDocuments on File Type Date Recorded Patient Otolaryngology Rep Expl anation Advance Directive(s) 03/14/2017 7:06 AM Documents on File Type Date Recorded Patient Otolaryngology Rep Expl anation Advance Directive(s) 03/14/2017 7:06 AM Summary Purpose Family History No Family History Records Found Additional Source Comments Source Comments (unrecognize d section and content) In the event this informatio n is protected by the Federal Confidentiality of Alcohol and Drug Abuse Patient Records regulations: The Federal rules restrict any use of the information to criminally investigate or prosecute any alcohol or drug abuse patient.[facility] this information is protected by the Federal Confidentiality of Alcohol and Drug Abuse Patient Records regulations: The Federal rules restrict any use of the information to criminally investigate or prosecute any alcohol or drug abuse patient.[facility] the event this information is protected by the Federal Confidentiality of Alcohol and Drug Abuse Patient Records regulations: The Federal rules restrict any use of the information to criminally investigate or prosecute any alcohol or drug abuse patient.[facility] the event this information is protected by the Federal Confidentiality of Alcohol and Drug Abuse Patient Records regulations: The Federal rules restrict any use of the information to criminally investigate or prosecute any alcohol or drug abuse patient.[facility] the event this information is protected by the Federal Confidentiality of Alcohol and Drug Abuse Patient Records regulations: The Federal rules restrict any use of the information to criminally investigate or prosecute any alcohol or drug abuse patient.[facility] the event this information is protected by the Federal Confidentiality of Alcohol and Drug Abuse Patient Records regulations: The Federal rules restrict any use of the information to criminally investigate or prosecute any alcohol or drug abuse patient.[facility] the event this information is protected by the Federal Confidentiality of Alcohol and Drug Abuse Patient Records regulations: The Federal rules restrict any use of the information to criminally investigate or prosecute any alcohol or drug abuse patient.[facility] the event this information is protected by the Federal Confidentiality of Alcohol and Drug Abuse Patient Records regulations: The Federal rules restrict any use of the information to criminally investigate or prosecute any alcohol or drug abuse patient.[facility] the event this information is protected by the Federal Confidentiality of Alcohol and Drug Abuse Patient Records regulations: The Federal rules restrict any use of the information to criminally investigate or prosecute any alcohol or drug abuse patient.[facility] the event this information is protected by the Federal Confidentiality of Alcohol and Drug Abuse Patient Records regulations: The Federal rules restrict any use of the information to criminally investigate or prosecute any alcohol or drug abuse patient.[facility] the event this information is protected by the Federal Confidentiality of Alcohol and Drug Abuse Patient Records regulations: The Federal rules restrict any use of the information to criminally investigate or prosecute any alcohol or drug abuse patient.[facility] the event this information is protected by the Federal Confidentiality of Alcohol and Drug Abuse Patient Records regulations: The Federal rules restrict any use of the information to criminally investigate or prosecute any alcohol or drug abuse patient.[facility] the event this information is protected by the Federal Confidentiality of Alcohol and Drug Abuse Patient Records regulations: The Federal rules restrict any use of the information to criminally investigate or prosecute any alcohol or drug abuse patient.[facility] the event this information is protected by the Federal Confidentiality of Alcohol and Drug Abuse Patient Records regulations: The Federal rules restrict any use of the information to criminally investigate or prosecute any alcohol or drug abuse patient.[facility] the event this information is protected by the Federal Confidentiality of Alcohol and Drug Abuse Patient Records regulations: The Federal rules restrict any use of the information to criminally investigate or prosecute any alcohol or drug abuse patient.[facility] the event this information is protected by the Federal Confidentiality of Alcohol and Drug Abuse Patient Records regulations: The Federal rules restrict any use of the information to criminally investigate or prosecute any alcohol or drug abuse patient.[facility] the event this information is protected by the Federal Confidentiality of Alcohol and Drug Abuse Patient Records regulations: The Federal rules restrict any use of the information to criminally investigate or prosecute any alcohol or drug abuse patient.[facility] the event this information is protected by the Federal Confidentiality of Alcohol and Drug Abuse Patient Records regulations: The Federal rules restrict any use of the information to criminally investigate or prosecute any alcohol or drug abuse patient.[facility] the event this information is protected by the Federal Confidentiality of Alcohol and Drug Abuse Patient Records regulations: The Federal rules restrict any use of the information to criminally investigate or prosecute any alcohol or drug abuse patient.[facility] the event this information is protected by the Federal Confidentiality of Alcohol and Drug Abuse Patient Records regulations: The Federal rules restrict any use of the information to criminally investigate or prosecute any alcohol or drug abuse patient.[facility] the event this information is protected by the Federal Confidentiality of Alcohol and Drug Abuse Patient Records regulations: The Federal rules restrict any use of the information to criminally investigate or prosecute any alcohol or drug abuse patient.[facility] the event this information is protected by the Federal Confidentiality of Alcohol and Drug Abuse Patient Records regulations: The Federal rules restrict any use of the information to criminally investigate or prosecute any alcohol or drug abuse patient.[facility] Reason for Visit (unrecogniz ed section and content) Reason Comments Insurance Authorization Reason Comments Yearly Exam Annual Wellness Reason Comments Radiology US Specialty Diagnoses / Procedures Referred By Contac t Referred To Contact US IMAGING Diagnoses Pain Procedures US FEMALE PELVIS TRANSABD LTD US PELVIC NONOBSTETRIC IMAGE DCMTN LIMITED/F/U Nancy Lugo APRN.CREDENTIALING SPECIALIST [address] [place] [address] Us Imaging Referral ID Status Reason Start Date Expiration Date V isits Requested Visits Authorized [id number] Closed Auto-Generate d Referral 11/18/2021 12/18/2022 1 1 Reason Comments New Patient Bunion Specialty Diagnoses / Procedures Referred By Contsharan t Referred To Contact Podiatry Diagnoses Bilateral bunions Procedures CONSULT TO PODIATRY OFFICE/OUTPATIENT NEW HIGH MDM 60-74 MINUTES Nancy Lugo APRN.CREDENTIALING SPECIALIST [address] [place] [address] Referral ID Status Reason Start Date Expiration Date V isits Requested Visits Authorized [id number] Closed PCP Requested Referral 11/18/2021 11/18/2022 1 1 Reason Comments Ovarian Cyst Reason Comments Patient Question Reason Onset Date Comments Yearly Exam 07/07/2022 Reason Comments Breast Problem Reason Comments Results Reason Comments Procedure Left needle us guide d biopsy Reason Onset Date Comments Refill Request 12/08/2022 Reason Comments Refill Request Reason Comments Physical Annual Physical Reason Comments Medication Problem Reason Comments Follow Up follow up-propranolo l and migraines Reason Comments Sore Throat Congestion, cough x 1 day Reason Comments Follow Up migraines and new me d- propranolol Care Teams (unrecognized sec tion and content) Shopper Relationship Specialty Start Date End Date Verna Dos Santos MD [address] [place], [place] [id number] PCP - General Internal Medicine 10/11/18 Shopper Relationship Specialty Start Date End Date Verna Dos Santos MD [address] [place], [place] [id number] PCP - General Internal Medicine 10/11/18 Shopper Relationship Specialty Start Date End Date Verna Dos Santos MD [address] [place], [place] [id number] PCP - General Internal Medicine 10/11/18 Shopper Relationship Specialty Start Date End Date Verna Dos Santos MD [address] [facility] [place] [address] PCP - General Internal Medicine 10/11/18 Shopper Relationship Specialty Start Date End Date Verna Dos Santos MD [address] [facility] [place] [address] PCP - General Internal Medicine 10/11/18 Shopper Relationship Specialty Start Date End Date Verna Dos Santos MD [address] [facility] [place] [address] PCP - General Internal Medicine 10/11/18 Shopper Relationship Specialty Start Date End Date Verna Dos Santos MD [address] [facility] [place] [address] PCP - General Internal Medicine 10/11/18 Shopper Relationship Specialty Start Date End Date Verna Dos Santos MD [address] [facility] [place] [address] PCP - General Internal Medicine 10/11/18 Shopper Relationship Specialty Start Date End Date Verna Dos Santos MD [address] [facility] [place] [address] PCP - General Internal Medicine 10/11/18 Shopper Relationship Specialty Start Date End Date Verna Dos Santos MD [address] [facility] [place] [address] PCP - General Internal Medicine 10/11/18 Shopper Relationship Specialty Start Date End Date Verna Dos Santos MD [address] [facility] [place] [address] PCP - General Internal Medicine 10/11/18 Shopper Relationship Specialty Start Date End Date Venra Dos Santos MD [address] [facility] [place] [address] PCP - General Internal Medicine 10/11/18 Shopper Relationship Specialty Start Date End Date Verna Dos Santos MD [address] [place] [address] PCP - General Internal Medicine 10/11/18 Shopper Relationship Specialty Start Date End Date Verna Dos Santos MD [address] [place] [address] PCP - General Internal Medicine 10/11/18 Shopper Relationship Specialty Start Date End Date Verna Dos Santos MD [address] [place] [address] PCP - General Internal Medicine 10/11/18 Shopper Relationship Specialty Start Date End Date Verna Dos Santos MD [address] [place] [address] PCP - General Internal Medicine 10/11/18 Shopper Relationship Specialty Start Date End Date Verna Dos Santos MD [address] [place] [address] PCP - General Internal Medicine 10/11/18 INFORMATION SOURCE (unrecogn ized section and content) FOR RECORDS PERTAINING TO PATIENTS WHO ARE OR HAVE BEEN ENROLLED IN A CHEMICAL DEPENDENCY/SUBSTANCEABUSE PROGRAM, SOME INFORMATION MAY BE OMITTED. This clinical summary was aggregated from multiple sources. Caution should be exercised in using it in the provision of clinical care. This summary normalizes information from multiple sources, and as a consequence, information in this document may materially change the coding, format and clinical context of patient data. In addition, data may be omitted in some cases. CLINICAL DECISIONS SHOULD BE BASED ON THE PRIMARY CLINICAL RECORDS. [employer] [facility]. provides no warranty or guarantee of the accuracy or completeness of information in this document.
--- NOTE | 2023-05-07 01:47 | EDS_ITS ---
HPI History of Present Illness Chief Complaint: Lower Extremity Injury Informant: patient Narrative Narrative: Patient is a 28-year-old female with past medical history of hypothyroidism. She states around 10 AM today she was lifting a bed and felt a pop in her left foot/ankle. She states since that time there has been faint swelling and she has noticed increased pain when she walks. She states that she feels the pain is worsened as time is progressed and she is concerned for potential fracture and therefore comes in for evaluation [facility] PFS Medical History no medical history Home Medications levonorgestrel-ethinyl estradiol 0.1 mg-20 mcg tablet 1 ea PO DAILY 02/22/18 [History Last Taken Unknown] levothyroxine 50 mcg tablet 50 mcg PO DAILY 05/31/19 [History Last Taken Unknown] magnesium citrate 300 ml PO X1 ##1 05/31/19 [Rx Last Taken Unknown] spironolactone 50 mg tablet 50 mg PO DAILY 05/31/19 [History Last Taken Unknown] Allergy/AdvReac Type Severity Reaction Status Date / Time codeine Allergy Intermediate Swelling Verified 05/07/23 00:12 cefuroxime axetil Allergy Unknown Hives Verified 05/07/23 00:12 [From Ceftin] Surgical History no surgical history Social History Smoking Status: Never smoker [facility] ED Constitutional Constitutional ED: Denies chills or fever(s) ENT ENT ED: Denies sore throat Cardiovascular Cardiovascular: Denies chest pain Respiratory/Chest Respiratory/Chest: Denies cough or dyspnea Gastrointestinal Gastrointestinal: Denies abdominal pain, diarrhea, nausea or vomiting Genitourinary Genitourinary ED: Denies dysuria Musculoskeletal Musculoskeletal: Reports other Details: Positive left foot/ankle pain Integumentary Denies Abrasions or rash Neurologic Neurologic: Denies headache(s), paresthesias or weakness Hematologic/Lymphatic Hematologic/Lymphatic: Denies easy bleeding or easy bruising EXAM Physical Exam Const Vital Signs: 05/07/23 00:13 Temperature 98 F Temperature Source Temporal Pulse Rate 83 Respiratory Rate 18 Blood Pressure 118/71 Blood Pressure Mean 86 Pulse Ox 97 Oxygen Delivery Method Room Air Positive well nourished and well developed General Appearance ED: well developed HEENT HEENT Narrative: Normocephalic atraumatic Eyes PERRL and EOMs intact bilaterally Neck supple Resp normal respiratory effort and clear to auscultation bilaterally Cardio regular rate and regular rhythm Extremity Extremity Narrative: Bilateral lower extremities are neurovascularly intact Patient has faint soft tissue swelling along the lateral aspect of the proximal left foot. No obvious bony deformity or joint effusion. There is mild pain with palpation along the fifth metatarsal. Achilles tendon is intact and ankle ligaments are stable Remainder of the exam is normal Neuro oriented x3, CN's II-XII intact bilaterally and no sensory deficits noted Sensorium / Orientation: alert Psych mental status grossly normal Skin no rashes or lesions noted and no wounds MDM MDM MDM Narrative Medical decision making narrative: Patient presented to the ER with stable vitals and reported left foot/ankle pain after lifting. By exam there is no signs of ligamentous or tendon injury there is no overlying erythema or warmth to suggest infection and therefore there is concern for potential fracture or dislocation based on her reported pop and pain. An x-ray was obtained to check for this and revealed no acute findings indicating patient most likely had a ligamentous strain or foot contusion. However without any neurologic event or ligamentous or tendon tear or acute fracture there is no need for further workup and she is otherwise safe for discharge Radiography Diagnostic Testing: Clinical Impression(s) from Imaging Studies Ankle X-Ray 05/07/23 00:45 IMPRESSION: Negative left ankle x-rays. Electronically Signed: Cal Puente MD at 1:24 EST Reading Location ID and State: [facility] / [place] Tel , Service support , Foot X-Ray 05/07/23 00:45 IMPRESSION: Negative left foot x-rays. Electronically Signed: Cal Puente MD at 1:26 EST , X-ray of the left ankle and left foot as interpreted by the emergency medicine physician reveals no acute fracture dislocation or foreign body Discharge Plan Triage Chief Complaint: Lower Extremity Injury ED Provider: Jovani Ramos Dx/Rx/DC Orders Clinical Impression: Contusion of foot, left, History of hypothyroidism Instructions: ED Foot Contusion Prescriptions: No Action levonorgestrel-ethinyl estrad 1 EACH tablet 1 ea PO DAILY spironolactone 50 MG tablet 50 mg PO DAILY levothyroxine 50 MCG tablet 50 mcg PO DAILY magnesium citrate 300 ML solution 300 ml PO X1 Qty: 1 0RF Rx Instructions: Primary Care Provider: Verna Olivas Referrals: Verna Olivas MD [Primary Care Provider] - Activity Restrictions/Additional Instructions: Your x-rays did not show any fracture or dislocation indicating there is a contusion/bruise to your bone. This should heal over the next 1 to 2 weeks. If the pain does not improve you may need repeat x-rays. Have any further concerns please return to the ER for repeat evaluation Disposition Disposition: Home, Self Care Discharge Date/Time: 05/07/23 01:51
== END 2023-05-07 01:51 | disposition home or self-care (01) ==
PROVIDERS: Emergency Provider Emergency Medicine; PCP Internal Medicine; Visit Provider Emergency Medicine
DX: S90.32XA Contusion of left foot, initial encounter (principal); X58.XXXA Exposure to other specified factors, initial encounter
CPT/HCPCS: 73610; 73630; 99282